=== PATIENT | male | born 1965 | race Caucasian/White ===

== ENCOUNTER 2016-10-26 09:24 | Day surgery (SDC) | payer OTHER ==
[~2016-10-26] VITALS: Ht 177.8 cm; Wt 88.2 kg
[~2016-10-26 09:24] MED LIST: LACTATED RINGERS 1,000 ML IV SCH; SODIUM CHLORIDE FLUSH 3 ML SYR IV PRN
[2016-10-26 09:33] VITALS: BP 135/90
[2016-10-26] MEDS ORDERED: MIDAZOLAM 2 MG/2 ML (VERSED) VIAL ONE (11:13)
[2016-10-26] MEDS ORDERED: PROPOFOL 20 ML IV ONE ×2 (11:14)
[2016-10-26] MEDS ORDERED: ALFENTANIL 500 MCG/ML (ALFENTA) 5 ML AMP IV ONE (11:14)
[2016-10-26] MEDS ORDERED: ONDANSETRON 2 MG/ML (Z0FRAN) 2 ML VIAL ONE (11:53)
[2016-10-26 12:14] VITALS: BP 132/79
[2016-10-26 12:30] VITALS: BP 131/82
== END 2016-10-26 12:35 | disposition home or self-care (01) ==
LOC: ASC 09:24
PROVIDERS: ATTEND Surgery
DX: Z12.11 Encounter for screening for malignant neoplasm of colon (principal); D12.5 Benign neoplasm of sigmoid colon; I10 Essential (primary) hypertension; E78.1 Pure hyperglyceridemia; Z79.82 Long term (current) use of aspirin
CPT/HCPCS: 45380; J2250; J2405; J7120